=== PATIENT | male | born 2000 | race Hispanic/Latino ===

== ENCOUNTER 2022-12-19 20:41 | Emergency (ER) | payer OTHER, SELFPAY ==
--- NOTE | ~2022-12-19 | CT_ITS ---
CT of the Abdomen and Pelvis: Indication: Abdominal pain Technique: 2.5 mm axial scans were obtained through the abdomen and pelvis following intravenous adm inistration of 100 cc of Omnipaque 350. Dose reduction technique was used on this scan by utilizing a utomated exposure control and iterative reconstruction technique. The dose-length product (DLP) was 3 22.71 mGy-cm. Findings: Scans through the lung bases are unremarkable. Mild periportal edema noted. The liver, spleen, pancreas, gallbladder, adrenals and kidneys are other lora within normal limits. No evidence of aortic aneurysm. No lymphadenopathy. No bowel obstruction or bowel wall thickening. There is no evidence to suggest acute appendicitis. Images through the pelvis were performed. Urinary bladder unremarkable. No pelvic mass seen. No ascit es. Impression: Mild periportal edema, nonspecific finding. No other significant findings. Reviewed, dictated and finalized at [facility]. T OPERATIONS MANAGER Impression: Mild periportal edema, nonspecific finding. No other significant findings.
[2022-12-19 20:45] VITALS: BP 133/63; PULSE 104; RESP 19; TEMP 37.4; O2SAT 97
[2022-12-20] MEDS: HYDROmorphone HCL INJ (*CRX) 1 MG/ML SYR 0.5 MG IV PUSH (00:12)
[2022-12-20] MEDS: SODIUM CHLORIDE 0.9% IV 2,000 ML 999 ML IV CONT (00:12)
[2022-12-20] MEDS: ONDANSETRON INJ 4 MG/2 ML VIAL IV PUSH (00:12)
[2022-12-20 00:13] VITALS: BP 138/74; PULSE 92; RESP 15; O2SAT 100
[2022-12-20] MEDS: FAMOTIDINE 20 MG/2 ML VIAL IV PUSH (00:13)
[2022-12-20 00:23] LABS: Appearance Urine Clear (Clear); Bilirubin Urine Negative (Negative); Blood Urine Negative (Negative); Color Urine Yellow (Yellow); Glucose Urine UA Negative (Negative); Ketones Urine Negative (Negative); Leukocyte Esterase Ur Negative LEU/UL (Negative); Nitrate Urine Negative (Negative); Protein Urine Negative (Negative); Specific Grav Ur 1.017 (1.001-1.035); pH Urine 6.5 (5.0-9.0)
[2022-12-20 00:25] LABS: Alanine Aminotransferase 29 U/L (6-50); Albumin Level 4.4 g/dL (3.5-5.1); Alkaline Phosphatase 63 U/L (38-126); Anion Gap 9 mmol/L (8-16); Aspartate Amino Transferase 29 U/L (17-59); Bilirubin,Total 0.7 mg/dL (0.2-1.3); Blood Urea Nitrogen 12 mg/dL (9-20); Calcium 8.9 mg/dL (8.4-10.2); Carbon Dioxide 27 mmol/L (22-30); Chloride 103 mmol/L (98-107); Estimated CRCL calculation 128 ml/min; Estimated Glomerular Filt Rate > 60; Glucose 104 mg/dL (65-110); Lipase 55 U/L (23-300); Potassium 3.8 mmol/L (3.4-5.0); Sodium 139 mmol/L (137-145)
[2022-12-20 00:29] LABS: Add Urine Microscopic? NO
[2022-12-20 00:31] LABS: Basophils Percent Auto 0.1 % (0.2-1.2); Eosinophils Absolute Auto 0.1 K/mm3 (0-0.3); Eosinophils Percent Auto 0.7 % (0-4.4); Hematocrit 43.6 % (42.0-52.0); Hemoglobin 14.5 g/dL (14.0-18.0); Immature Granulocyte Absolute 0.05 K/mm3 (0.00-0.031); Immature Granulocyte Percent A 0.5 % (0-0.5); Lymphocytes Absolute Auto 1.58 K/mm3 (0.9-3.2); Lymphocytes Percent Auto 14.4 % (18.3-44.2); Mean Corpuscular HGB Conc 33.3 g/dl (32-36); Mean Corpuscular Volume 93.2 fl (80-100); Mean Platelet Volume 10.9 fl (7.4-10.4); Monocytes Absolute Auto 0.9 K/mm3 (0.1-0.6); Neutrophils Absolute Auto 8.3 K/mm3 (1.3-6.7); Neutrophils Percent Auto 76.3 % (45.5-73.1); Platelet Count Result 155 k/mm3 (150-375); Red Blood Count 4.68 M/mm3 (4.6-6.20); Red Cell Distribution Width 12.1 % (11.5-14.5); White Blood Count 10.9 K/mm3 (4.5-10.0)
--- NOTE | 2022-12-20 01:15 | ED.GENADULT ---
HPI - General Adult General Chief complaint: Abdominal Pain Stated complaint: abd pain/body aches/diarrhea Time Seen by Provider: 12/19/22 23:03 History of Present Illness HPI narrative: Radiologist service was used for all communication. Ecuadorean#[id number] This is a 22 year year old male presenting to ED with chief complaint of abdominal pain. patient states that he started to have an abdominal pain located around his belly button yesterday. It is a pulsing pain, nonradiating 10 out 10 intensity in getting worse. He has never experienced this before. It is worse when he eats. Improved when he took a medication his uncle although he does not know what that medication was. Patient has also been having subjective fevers, nausea vomiting and diarrhea. He denies chest pain shortness of breath, urinary sxs, or URI symptoms. Related Data Allergies Allergy/AdvReac Type Severity Reaction Status Date / Time No Known Allergies Allergy Verified 12/20/22 00:11 Exam Narrative: APPEARANCE: No apparent distress. Head: atraumatic. EYES: EOMI, NOSE: Atraumatic NECK: Trachea midline RESPIRATORY: No increased rate of breathing CARDIOVASCULAR: RRR, ABDOMINAL: abdomen is soft with tenderness localized around the umbilical area, rest of the abdomen including the right upper and right lower were nontender with no guarding or rebound. MUSCULOSKELETAl: No obvious deformities NEURO: Alert. Moving 4/4 extremities SKIN:: Warm, dry. Normal color PSYCHIATRIC: Normal affect Course Vital Signs Vital signs: Vital Signs Temperature 99.3 F 12/19/22 20:45 Pulse Rate 104 H 12/19/22 20:45 Respiratory Rate 19 12/19/22 20:45 Blood Pressure 133/63 12/19/22 20:45 Pulse Oximetry 97 12/19/22 20:45 Oxygen Delivery Room Air 12/19/22 20:45 Temperature 99.3 F 12/19/22 20:45 Pulse Rate 92 12/20/22 00:13 Respiratory Rate 15 12/20/22 00:13 Blood Pressure 138/74 12/20/22 00:13 Pulse Oximetry 100 12/20/22 00:13 Oxygen Delivery Room Air 12/19/22 20:45 Medical Decision Making [facility] Narrative Medical decision making narrative: -Course: 22-year-old male presenting with abdominal pain, nausea vomiting diarrhea. -DDX includes but is not limited to: early appendicitis, gastroenteritis, viral syndrome, gallbladder disease, pancreatitis, colitis -Independent interpretation of studies: white count 10.9. Metabolic panel normal, urine not indicative of infection. -Interventions: 2 L normal saline, Zofran, Dilaudid, Pepcid -Shared decision making / Disposition: discharged home -RX Pepcid, Zofran Vital Signs Vital Signs: Vital Signs Temperature 99.3 F 12/19/22 20:45 Pulse Rate 104 H 12/19/22 20:45 Respiratory Rate 19 12/19/22 20:45 Blood Pressure 133/63 12/19/22 20:45 Pulse Oximetry 97 12/19/22 20:45 Oxygen Delivery Room Air 12/19/22 20:45 Temperature 99.3 F 12/19/22 20:45 Pulse Rate 92 12/20/22 00:13 Respiratory Rate 15 12/20/22 00:13 Blood Pressure 138/74 12/20/22 00:13 Pulse Oximetry 100 12/20/22 00:13 Oxygen Delivery Room Air 12/19/22 20:45 Lab Data 12/20/22 00:05 12/20/22 00:05 Labs: Lab Results 12/20/22 Range/Units 00:05 WBC 10.9 H (4.5-10.0) K/mm3 RBC 4.68 (4.6-6.20) M/mm3 Hgb 14.5 (14.0-18.0) g/dL Hct 43.6 (42.0-52.0) % MCV 93.2 (80-100) fl MCH 31.0 (26-34) pg MCHC 33.3 (32-36) g/dl RDW 12.1 (11.5-14.5) % Plt Count 155 (150-375) k/mm3 MPV 10.9 H (7.4-10.4) fl Immature Gran % (Auto) 0.5 (0-0.5) % Neut % (Auto) 76.3 H (45.5-73.1) % Lymph % (Auto) 14.4 L (18.3-44.2) % [place] % (Auto) 8.0 (2.6-8.5) % Eos % (Auto) 0.7 (0-4.4) % Baso % (Auto) 0.1 L (0.2-1.2) % Lymph # (Auto) 1.58 (0.9-3.2) K/mm3 [place] # (Auto) 0.9 H (0.1-0.6) K/mm3 Eos # (Auto) 0.1 (0-0.3) K/mm3 Baso # (Auto) 0.0 (0.0-0.1) K/mm3 Abs Immat Gran (auto) 0.05 H (0.00-0.031) K/mm3 Abso
[2022-12-20 03:28] VITALS: BP 104/60; PULSE 80; RESP 15; O2SAT 100
[2022-12-20 06:24] VITALS: BP 124/64; PULSE 72; RESP 16; O2SAT 100
== END 2022-12-20 06:25 | disposition home or self-care (01) ==
PROVIDERS: Emergency Provider Emergency Medicine; PCP Emergency Medicine
DX: K52.9 Noninfective gastroenteritis and colitis, unspecified (principal)
CPT/HCPCS: 36415; 74177; 80053; 81003; 83690; 85025; 96361; 96374; 96375; 99284; J1170; J2405; J7030; Q9967